=== PATIENT | female | born 1990 | race African-American/Black ===

== ENCOUNTER 2023-01-20 04:10 | Emergency (ER) | payer OTHER, SELFPAY ==
[2023-01-20 04:19] VITALS: BP 136/89; PULSE 67; RESP 15; TEMP 36.9; O2SAT 100; BMI 29.2
[2023-01-20 04:33] LABS: Pregnancy Test Urine Negative (Negative)
[2023-01-20 04:36] LABS: Bilirubin Urine UA NEGATIVE (NEGATIVE); Glucose Urine UA NEGATIVE (Negative); Ketones Urine UA NEGATIVE (NEGATIVE); Leukocyte Esterase Urine UA TRACE (NEGATIVE); Nitrite Urine UA POSITIVE (Negative); Occult Blood Urine UA 3+ (Negative); Protein Urine UA 2+ (Negative); Specific Gravity Urine UA <=1.005 (1.000-1.035)
[2023-01-20 04:37] LABS: Color Urine UA Orange; pH Urine UA 5.5 (4.5-8.0)
[2023-01-20 04:38] LABS: Appearance Urine UA Slightly Cloudy; Bacteria Urine Occasional (0-1); RBC Urine 30-100/HPF (0-5/HPF); WBC Urine 10-30/HPF (0-5/HPF)
[2023-01-20 04:39] LABS: Culture Indicated Urine Specimen Cultured; Squamous Epithelial Cell Urine 0-1 /HPF (0-5/HPF)
--- NOTE | 2023-01-20 05:42 | ED.FEMALEGU ---
HPI - Female Genitourinary General Chief complaint: Urogenital-Female Stated complaint: blood in urine Time Seen by Provider: 01/20/23 05:41 Source: patient Mode of arrival: Ambulatory History of Present Illness HPI Narrative: Patient is a 32-year-old female presents today with painful frequent urination along with blood in her urination stroke symptoms started around 6:00 p.m. last night but the blood started this morning. She denies any flank pain nausea vomiting or significant abdominal pain. No abnormal vaginal discharge no concern for STI Related Data Previous Rx's Medication Instructions Recorded cephalexin 500 mg capsule 500 mg PO BID 5 days #10 caps 01/20/23 phenazopyridine 100 mg tablet 100 mg PO TID PRN pain 6 doses #6 01/20/23 (Pyridium) tabs Allergies Allergy/AdvReac Type Severity Reaction Status Date / Time No Known Drug Allergies Allergy Verified 01/20/23 04:19 Review of Systems Review of Systems ROS Unobtainable: All systems reviewed & are unremarkable except as noted in HPI and below Patient History alcohol intake frequency: a few times a month Substance Use Type: does not use Exam Initial Vital Signs Initial Vital Signs: Vital Signs Temperature 98.5 F 01/20/23 04:19 Pulse Rate 67 01/20/23 04:19 Respiratory Rate 15 01/20/23 04:19 Blood Pressure 136/89 01/20/23 04:19 Pulse Oximetry 100 01/20/23 04:19 Oxygen Delivery Method Room Air 01/20/23 04:19 GENERAL: Well-appearing, well-nourished and in no acute distress. CARDIOVASCULAR: peripheral pulses in tact, cap refill <2 sec RESPIRATORY: No respiratory distress, speaks in full sentences without difficulty ABDOMEN: Soft, nontender, no guarding or rebound : No flank pain EXTREMITIES: Normal range of motion, no clubbing or edema. Neurovascularly intact NEUROLOGICAL: Cranial nerves II through XII grossly intact. Normal gait and speech. SKIN: Warm, dry, no petechiae, no rashes or lesions. Course Orders Ordered: ED Orders 01/20/23 04:24 Test Urine Stat Urinalysis and Microscopic Stat Urine Culture Stat Discontinued Medications Cefazolin Sodium (Cephalexin 250 Mg Cap Prepack) 1 bottle MISC SEEINSTR ONE Stop: 01/20/23 05:42 Last Admin: 01/20/23 05:47 Dose: 1 bottle Documented By: ABELARDO Phenazopyridine HCl (Phenazopyridine 100 Mg Tablet) 200 mg PO NOW ONE Stop: 01/20/23 05:42 Last Admin: 01/20/23 05:47 Dose: 200 mg Documented By: ABELARDO Vital Signs Vital signs: Vital Signs - 8 hr 01/20/23 04:19 Temperature 98.5 F Pulse Rate 67 Respiratory Rate 15 Blood Pressure 136/89 Pulse Oximetry 100 Oxygen Delivery Method Room Air MDM - Female Genitourinary Lab Data Labs: Lab Results 01/20/23 01/20/23 Range/Units 04:24 04:24 Urine Color [place] Urine Appearance Slightly cloudy Urine pH 5.5 (4.5-8.0) Ur Specific [place] <=1.005 (1.000-1.035) Urine Protein 2+ H (Negative) Urine Glucose (UA) Negative (Negative) g/dL Urine Ketones Negative (NEGATIVE) Urine Occult Blood 3+ H (Negative) Urine Nitrate Positive H (Negative) Urine Bilirubin Negative (NEGATIVE) Urine Urobilinogen 2.0 H (0.2) E.U./dL Ur Leukocyte Esterase Trace H (NEGATIVE) Urine RBC 30-100/hpf H (0-5/HPF) Urine WBC 10-30/hpf H (0-5/HPF) Ur Squamous Epith Cells 0-1 /hpf (0-5/HPF) Urine Bacteria Occasional (0-1) (None) Ur Culture Indicated? Specimen cultured Urine Test Negative (Negative) [facility] Narrative Medical decision making narrative: Patient 32-year-old female signs and symptoms consistent with UTI. Urinalysis supports UTI with positive nitrates and hematuria. No evidence of sepsis. Negative . At this time no need for any further workup or evaluation. Patient overall appears well Discharge Plan Departure Patient Disposition: Home Clinical Impression: Urinary tract infection Instructions: DI for Urinary Tract Infection (UTI) Activity Restrictions/Additional Instructions: *You have been diagnosed with UTI *What to do: Increase fluids as tolerated. Take Pyridium only as needed *Continue to take medications as directed--> SENT TO [facility] Pyridium 100 mg 3 times a day if needed for painful urination Keflex 500 mg twice a day for 5 days *Follow up with your primary care provider in 2-3 days or call [phone] *Return to ER if you should have increased pain nausea vomiting or any new, worsening or concerning symptoms Prescriptions: New phenazopyridine [Pyridium] 100 mg tablet 100 mg PO TID PRN (Reason: pain) Qty: 6 0RF cephalexin 500 mg capsule 500 mg PO BID 5 Days Qty: 10 0RF Referrals: ProviderAnthony [Primary Care Provider] - Stand Alone Forms: Patient Portal/API
[2023-01-20] MEDS: PHENAZOPYRIDINE 100 MG TABLET 200 MG PO (05:47)
[2023-01-20] MEDS: cephALEXin 250 MG CAP PREPACK 1 BOTTLE MISC (05:47)
== END 2023-01-20 05:53 | disposition home or self-care (01) ==
PROVIDERS: Emergency Provider Emergency Medicine
DX: N39.0 Urinary tract infection, site not specified (principal)
CPT/HCPCS: 81001; 81025; 87077; 87086; 87186; 99283